=== PATIENT | female | born 1980 ===

== ENCOUNTER → 2020-11-06 | Outpatient (CLI) | payer OTHER | END | disposition home or self-care (01) | LOC: LAB 14:24 | PROVIDERS: ATTEND Emergency Medicine Pediatric Emergency Medicine | DX: Z03.818 Encounter for observation for suspected exposure to other biological agents ruled out (principal) ==

== ENCOUNTER 2022-04-18 09:42 | Outpatient (CLI) | payer OTHER | END 2022-04-18 09:47 | disposition home or self-care (01) | LOC: RX STUDY 09:42 | PROVIDERS: ATTEND Specialist | DX: N36.0 Urethral fistula (principal) ==